=== PATIENT | male | born 1990 | race African-American/Black ===

== ENCOUNTER 2018-04-05 12:38 | Emergency (ER) | payer OTHER ==
[~2018-04-05] VITALS: Ht 188 cm; Wt 83.9 kg
[2018-04-05 12:51] VITALS: BP 116/84
[2018-04-05] MEDS ORDERED: IBUPROFEN 800 MG TAB PO ONE (14:45)
== END 2018-04-05 16:32 | disposition home or self-care (01) ==
LOC: ER 12:38
DX: M54.5 Low back pain (principal); V49.49XA Driver injured in collision with other motor vehicles in traffic accident, initial encounter; Y93.89 Activity, other specified; Y99.8 Other external cause status; Y92.488 Other paved roadways as the place of occurrence of the external cause
CPT/HCPCS: 72100